=== PATIENT | male | born 1990 | race Two or more races ===

== ENCOUNTER 2020-05-01 10:58 | Outpatient (CLI) | payer OTHER | END 2020-05-01 11:09 | disposition home or self-care (01) | LOC: RAD 10:58 | PROVIDERS: ATTEND Urology | DX: I86.1 Scrotal varices (principal) ==

== ENCOUNTER 2020-06-19 06:00 | Day surgery (SDC) | payer OTHER | END 2020-06-19 15:50 | disposition home or self-care (01) | LOC: CIR.AMB 06:00 → ADM 07-12 09:15 | PROVIDERS: ATTEND Orthopaedic Surgery Hand Surgery | DX: D48.1 Neoplasm of uncertain behavior of connective and other soft tissue (principal); Z20.822 Contact with and (suspected) exposure to COVID-19 ==